=== PATIENT | male | born 1970 | race Hispanic/Latino ===

== ENCOUNTER 2020-08-17 10:33 | Emergency (ER) | payer MEDICARE, MEDICAID ==
[2020-08-17 11:05] LABS: #Basophils 0.1 10x3/uL (0.0-0.2); #Eosinphils 0.3 10x3/uL (0.0-0.5); #Monocytes 1.3 10x3/uL (0.0-1.1); #Neutrophils 13.1 10x3/uL (1.5-8.4); %Basophils 0.3 % (0.0-2.0); %Eosinophils 1.6 % (0.0-6.0); %Lymphocytes 16.6 % (18.0-47.0); %Monocytes 7.1 % (0.0-10.0); %Neutrophils 73.8 % (40.0-75.0); Hemoglobin 9.3 g/dL (13.5-17.5); Mean Corpuscular HGB CONC 32.3 g/dL (32.0-36.0); Mean Corpuscular Hemoglobin 32.2 pg (27.0-33.0); Mean Corpuscular Volume 99.7 fl (81.2-95.1); Mean Platelet Volume 9.8 fl (7.4-10.4); Platelet Count 476 10x3/uL (150-450); RBC Distribution Width 13.3 % (11.5-14.5); Red Blood Cell (RBC) Count 2.89 10x6/uL (4.32-5.72); White Blood Cell (WBC) Count 17.8 10x3/uL (3.5-10.5)
[2020-08-17 11:24] LABS: ALT (SGPT) 24 U/L (8-55); AST (SGOT) 20 U/L (5-34); Albumin 3.9 g/dL (3.5-5.0); Alkaline Phosphatase 126 U/L (40-110); Anion Gap 22 mmol/L (10-20); BUN (Urea Nitrogen) 38 mg/dL (8.9-20.6); Bilirubin, Total 0.5 mg/dL (0.2-1.2); Calc. Creatinine Clearance 0 mL/min (70-130); Calcium 7.6 mg/dL (7.8-10.44); Carbon Dioxide 26 mmol/L (22-29); Chloride 96 mmol/L (98-107); Glucose 170 mg/dL (70-105); Protein, Total 7.9 g/dL (6.0-8.3); Sodium 141 mmol/L (136-145)
== END 2020-08-17 15:05 | disposition home or self-care (01) ==
LOC: CSHERS 10:33
DX: R55 Syncope and collapse (principal); D72.829 Elevated white blood cell count, unspecified; I12.9 Hypertensive chronic kidney disease with stage 1 through stage 4 chronic kidney disease, or unspecified chronic kidney disease; N18.9 Chronic kidney disease, unspecified; G47.30 Sleep apnea, unspecified; Z79.899 Other long term (current) drug therapy
CPT/HCPCS: 36415; 71045; 80053; 84484; 85025; 87040; 93005

== ENCOUNTER 2021-09-04 07:15 | Outpatient (CLI) | payer MEDICARE, MEDICAID | END 2021-09-04 07:16 | disposition home or self-care (01) | LOC: CSHCT 07:15 | PROVIDERS: ATTEND Internal Medicine | DX: C18.7 Malignant neoplasm of sigmoid colon (principal); Z53.9 Procedure and treatment not carried out, unspecified reason | CPT/HCPCS: 82565 ==

== ENCOUNTER 2021-11-15 09:43 | Emergency (ER) | payer MEDICARE, MEDICAID | END 2021-11-15 10:09 | disposition home or self-care (01) | LOC: CSHERS 09:43 | DX: L98.9 Disorder of the skin and subcutaneous tissue, unspecified (principal); I12.0 Hypertensive chronic kidney disease with stage 5 chronic kidney disease or end stage renal disease; N18.6 End stage renal disease; Z99.2 Dependence on renal dialysis | CPT/HCPCS: 99283 ==

== ENCOUNTER 2022-03-02 17:37 | Emergency (ER) | payer MEDICARE, MEDICAID ==
[2022-03-02 20:46] LABS: #Basophils 0.1 10x3/uL (0.0-0.2); #Eosinphils 0.3 10x3/uL (0.0-0.5); #Monocytes 1.5 10x3/uL (0.0-1.1); #Neutrophils 8.6 10x3/uL (1.5-8.4); %Basophils 0.5 % (0.0-2.0); %Eosinophils 1.9 % (0.0-6.0); %Lymphocytes 19.9 % (18.0-47.0); %Monocytes 11.7 % (0.0-10.0); %Neutrophils 65.5 % (40.0-75.0); Hemoglobin 11.4 g/dL (13.5-17.5); Mean Corpuscular HGB CONC 33.2 g/dL (32.0-36.0); Mean Corpuscular Hemoglobin 32.5 pg (27.0-33.0); Mean Corpuscular Volume 97.7 fl (81.2-95.1); Mean Platelet Volume 10.5 fl (7.4-10.4); Platelet Count 296 10x3/uL (150-450); RBC Distribution Width 14.7 % (11.5-14.5); Red Blood Cell (RBC) Count 3.51 10x6/uL (4.32-5.72); White Blood Cell (WBC) Count 13.1 10x3/uL (3.5-10.5)
[2022-03-02 20:51] LABS: Bilirubin Neg (Negative); Blood, Urine Negative (Negative); Clarity Clear (Clear); Glucose, Urine (Dipstick) Normal (Negative); Ketone, Urine Negative (Negative); Leukocyte Negative (Negative); Nitrite Negative (Negative); Protein, Urine (Dipstick) 100 mg/dl (Neg-Trace); Specific Gravity, Urine 1.015 (1.005-1.030); Urobilinogen Normal mg/dL (Less than 2)
[2022-03-02 21:03] LABS: Bacteria/HPF Rare-Few HPF (None Seen); RBC/HPF 0-3 HPF (0-3); Squamous Epithelial 0-3 HPF (0-3)
[2022-03-02 21:18] LABS: ALT (SGPT) 22 U/L (8-55); AST (SGOT) 25 U/L (5-34); Albumin 4.1 g/dL (3.5-5.0); Alkaline Phosphatase 133 U/L (40-110); Anion Gap 15 mmol/L (10-20); BUN (Urea Nitrogen) 44 mg/dL (8.4-25.7); Bilirubin, Total 0.3 mg/dL (0.2-1.2); Calc. Creatinine Clearance 0 mL/min (70-130); Calcium 9.6 mg/dL (7.8-10.44); Carbon Dioxide 15 mmol/L (22-29); Chloride 115 mmol/L (98-107); Estimated GFR 17; Globulin 3.8 g/dL (2.4-3.5); Glucose 99 mg/dL (70-105); Lipase 56 U/L (8-78); Potassium 3.6 mmol/L (3.5-5.1); Protein, Total 7.9 g/dL (6.0-8.3); Sodium 141 mmol/L (136-145)
== END 2022-03-02 21:52 | disposition home or self-care (01) ==
LOC: CSHERS 17:37
DX: M54.6 Pain in thoracic spine (principal); I12.0 Hypertensive chronic kidney disease with stage 5 chronic kidney disease or end stage renal disease; N18.6 End stage renal disease
CPT/HCPCS: 36415; 80053; 81003; 81015; 83690; 84484; 85025; 93005

== ENCOUNTER 2022-07-07 13:05 | Outpatient (CLI) | payer OTHER ==
[2022-07-07 13:48] LABS: ALV-art Gradient 5.955 mmHg (0-20); Actual Bicarbonate (HCO3a) 17.2 mEq/L (22-28); Base Excess (BEa) -8.7 mEq/L (-2.0 to +3.0); CO2 Tension 36.7 mmHg (35.0-45.0); Calcium, Ionized (arterial) 1.23 mmol/L (1.12-1.30); Carboxyhemoglobin (COHb) 0.5 gm% (0.0-3.0); Hemoglobin (Hb) 12.7 g/dL (14.0-18.0); O2 Tension (PaO2), arterial 97.9 mmHg (80.0-100.0); Potassium - ABG Lab 3.9 mmol/L (3.70-5.30); Puncture Site RRA; pH, Arterial 7.29 (7.35-7.45)
== END 2022-07-07 13:06 | disposition home or self-care (01) ==
LOC: CSHCP 13:05
PROVIDERS: ATTEND Internal Medicine Critical Care Medicine
DX: G47.33 Obstructive sleep apnea (adult) (pediatric) (principal)
CPT/HCPCS: 36600; 82805

== ENCOUNTER 2022-07-28 08:45 | Outpatient (CLI) | payer OTHER, MEDICAID | END 2022-07-28 08:46 | disposition home or self-care (01) | LOC: CSHCP 08:45 | PROVIDERS: ATTEND Internal Medicine Critical Care Medicine | DX: R06.00 Dyspnea, unspecified (principal); R94.2 Abnormal results of pulmonary function studies | CPT/HCPCS: 94010; 94726; 94729; 94760 ==

== ENCOUNTER 2024-12-16 18:56 | Emergency (ER) | payer OTHER, MEDICAID ==
[~2024-12-16 18:56] MED LIST: Iopamidol 300 61% 100 ML VIAL FS ONE
[2024-12-16] MEDS ORDERED: Lidocaine Viscous Sol 2% 15 ml UD Cup ONE (19:45)
[2024-12-16] MEDS ORDERED: Mag-Al 1200 mg/1200 mg/30 ML UDCUP ONE (19:45)
[2024-12-16] MEDS ORDERED: Famotidine/PF 20 mg/2ml Vial ONE (19:45)
[2024-12-16 20:03] LABS: #Basophils 0.06 10x3/uL (0.0-0.2); #Eosinophils 0.55 10x3/uL (0.0-0.5); #Monocytes 1.74 10x3/uL (0.0-1.1); #Neutrophils 14.97 10x3/uL (1.5-8.4); %Basophils 0.3 % (0.0-2.0); %Eosinophils 2.6 % (0.0-6.0); %Lymphocytes 13.6 % (18.0-47.0); %Monocytes 8.4 % (0.0-10.0); %Neutrophils 72.1 % (40.0-75.0); Hematocrit 33.3 % (38.8-50.0); Hemoglobin 10.6 g/dL (13.5-17.5); Mean Corpuscular Hemoglobin 31.5 pg (27.0-33.0); Mean Corpuscular Volume 99.1 fL (81.2-95.1); Platelet Count 289 10x3/uL (150-450); Red Blood Cell (RBC) Count 3.36 10x6/uL (4.32-5.72); White Blood Cell (WBC) Count 20.76 10x3/uL (3.5-10.5)
[2024-12-16 20:21] LABS: ALT (SGPT) 30 U/L (Less than 45); AST (SGOT) 27 U/L (11-34); Albumin 2.8 g/dL (3.1-4.5); Alkaline Phosphatase 192 U/L (40-110); Anion Gap 15 mmol/L (10-20); BUN (Urea Nitrogen) 45 mg/dL (8.4-25.7); Bilirubin, Total 0.4 mg/dL (0.3-1.2); Calc. Creatinine Clearance 0 mL/min (70-130); Calcium 7.9 mg/dL (7.8-10.44); Carbon Dioxide 19 mmol/L (22-29); Chloride 114 mmol/L (98-107); Globulin 4.4 g/dL (2.4-3.5); Glucose 142 mg/dL (70-105); Lipase 401 U/L (8-78); Potassium 3.6 mmol/L (3.5-5.1); Sodium 144 mmol/L (136-145)
[2024-12-16 20:24] LABS: Troponin I 0.024 ng/mL (< 0.028)
== END 2024-12-17 01:11 | disposition short-term general hospital (02) ==
LOC: CSHERS 18:56
DX: K85.90 Acute pancreatitis without necrosis or infection, unspecified (principal); I12.0 Hypertensive chronic kidney disease with stage 5 chronic kidney disease or end stage renal disease; N18.6 End stage renal disease; Z99.2 Dependence on renal dialysis
CPT/HCPCS: 74177; 80053; 83690; 84484; 85025; 93005; J1308; J2270; 36415; 96374; 96375; Q9967

== ENCOUNTER 2025-03-17 11:10 | Emergency (ER) | payer OTHER, MEDICAID ==
[2025-03-17 12:31] LABS: #Basophils 0.11 10x3/uL (0.0-0.2); #Eosinophils 0.49 10x3/uL (0.0-0.5); #Monocytes 1.32 10x3/uL (0.0-1.1); #Neutrophils 20.08 10x3/uL (1.5-8.4); %Basophils 0.4 % (0.0-2.0); %Eosinophils 2.0 % (0.0-6.0); %Lymphocytes 10.0 % (18.0-47.0); %Monocytes 5.3 % (0.0-10.0); %Neutrophils 80.4 % (40.0-75.0); Hematocrit 32.8 % (38.8-50.0); Hemoglobin 10.8 g/dL (13.5-17.5); Mean Corpuscular Hemoglobin 33.2 pg (27.0-33.0); Mean Corpuscular Volume 100.9 fL (81.2-95.1); Platelet Count 314 10x3/uL (150-450); Red Blood Cell (RBC) Count 3.25 10x6/uL (4.32-5.72); White Blood Cell (WBC) Count 24.99 10x3/uL (3.5-10.5)
[2025-03-17 12:46] LABS: ALT (SGPT) 77 U/L (Less than 45); AST (SGOT) 79 U/L (11-34); Albumin 2.9 g/dL (3.1-4.5); Alkaline Phosphatase 240 U/L (40-110); Anion Gap 25 mmol/L (10-20); BUN (Urea Nitrogen) 58 mg/dL (8.4-25.7); Bilirubin, Total 0.7 mg/dL (0.3-1.2); Calc. Creatinine Clearance 0 mL/min (70-130); Calcium 7.6 mg/dL (7.8-10.44); Carbon Dioxide 10 mmol/L (22-29); Chloride 111 mmol/L (98-107); Globulin 4.5 g/dL (2.4-3.5); Glucose 88 mg/dL (70-105); Sodium 142 mmol/L (136-145)
[2025-03-17 12:51] LABS: Troponin I 0.031 ng/mL (< 0.028)
[2025-03-17 12:55] LABS: Potassium 4.3 mmol/L (3.5-5.1)
[2025-03-17 13:38] LABS: Glucose, Urine (Dipstick) Normal (Negative); Leukocyte 100 (Negative); Protein, Urine (Dipstick) 100 mg/dl (Neg-Trace); Specific Gravity, Urine 1.015 (1.005-1.030)
[2025-03-17 13:46] LABS: Bacteria/HPF Rare-Few HPF (None Seen); CAUTI Indications for Culture Pelvic or flank pain; Urine Culture Reflex Yes Yes
[2025-03-17 13:56] LABS: Actual Bicarbonate (HCO3v) 15.1 mEq/L (22-28); Analyzer IN Cardio CS ER; Base Excess -10.3 mEq/L (-2 - +2); Calcium, Ionized (venous) 1.00 mmol/L (1.16-1.32); Chloride (VBG) 109 mmol/L (98-106); Critical Notified Whom: BUFAU; Hematocrit-VBG 33 % (42.0-52.0); Hemoglobin (Hb) 11.3 g/dL (13.1-17.2); Potassium (VBG) 3.20 mmol/L (3.70-5.30); Puncture Site Other Site; RapidComm Collect By LAB; Sodium 142 mmol/L (133-146)
[2025-03-17] MEDS ORDERED: Acetaminophen 500 MG TAB ONE (15:44)
[2025-03-17] MEDS ORDERED: Ciprofloxacin Lactate/D5W 400 MG in Premix 1 BAG IVPB SCH (16:00)
[2025-03-17 16:10] LABS: Troponin I 0.035 ng/mL (< 0.028)
== END 2025-03-17 17:50 | disposition short-term general hospital (02) ==
LOC: CSHERS 11:10
DX: N13.2 Hydronephrosis with renal and ureteral calculous obstruction (principal); R59.0 Localized enlarged lymph nodes; I12.0 Hypertensive chronic kidney disease with stage 5 chronic kidney disease or end stage renal disease; N18.6 End stage renal disease; R79.89 Other specified abnormal findings of blood chemistry; Z99.2 Dependence on renal dialysis; R60.0 Localized edema
CPT/HCPCS: 71045; 74176; 80053; 81001; 82805; 83605; 83880; 84484 ×2; 85025; 87077; 87086; 87186; 93005; 93970; 96374; 99285; J0744; 36415